=== PATIENT | male | born 1950 | race Caucasian/White ===

== ENCOUNTER → 2017-04-21 | Day surgery (SDC) | payer MEDICARE, MEDICAID ==
[~2017-04-21] MED LIST: Lactated Ringers 1,000 ML IV SCH; Propofol 200 MG/20 ML SDV IV ONE
--- NOTE | 2017-04-24 22:33 | OR ---
DATE OF OPERATION: 04/21/2017 PREOPERATIVE DIAGNOSIS: SCREENING COLONOSCOPY. POSTOPERATIVE DIAGNOSIS: SCREENING COLONOSCOPY. SURGEON: Chon Osborne MD PROCEDURE: FULL-LENGTH COLONOSCOPY. ANESTHESIA: [employer] due to mental retardation. COMPLICATIONS: None. SPECIMEN: None. FINDINGS: 1. Full-length colonoscopy. 2. Liriano-diverticulosis, moderate. RECOMMENDATIONS: Routine colonoscopy on a p.r.n. basis only at this point. INDICATIONS: The patient was seen for routine physical. He is a 4th [facility] resident, who is due for a 10-year follow up colonoscopy as a screening procedure. DESCRIPTION OF PROCEDURE: The patient was prepped and draped, placed in left lateral decubitus position. A lubricated Olympus colonoscope was inserted and safely and easily advanced to the cecum. Direct visualization of the ileocecal valve and appendiceal orifice was accomplished. Bowel prep was adequate. Upon withdrawal of the scope, the patient does have liriano diverticular disease extending from the right colon all the way through the rectosigmoid junction, more severe in the sigmoid area as expected, but moderate even all the way through the right colon. No acute inflammatory changes were seen throughout the length of the colon. I found no signs of any polyps, mass, ulceration, or bleeding sites. No vascular abnormalities or signs of colitis. The rectal vault was unremarkable. Retroflexion of scope in the rectum showed no anal lesions. Air was suctioned and scope removed without complication. MARVIN/KRISTOFER /[id number]
== END ==
LOC: CC.SDS 09:06
PROVIDERS: ATTEND Family Medicine
DX: Z12.11 Encounter for screening for malignant neoplasm of colon (principal); K57.30 Diverticulosis of large intestine without perforation or abscess without bleeding; N40.1 Benign prostatic hyperplasia with lower urinary tract symptoms; N39.43 Post-void dribbling; E78.00 Pure hypercholesterolemia, unspecified; I10 Essential (primary) hypertension; G20 Parkinson's disease; L50.8 Other urticaria; E11.9 Type 2 diabetes mellitus without complications; Z88.1 Allergy status to other antibiotic agents; Z79.899 Other long term (current) drug therapy; Z87.891 Personal history of nicotine dependence
CPT/HCPCS: 00812; 45378; G0121; J2704; J7120

== ENCOUNTER 2022-07-28 09:06 | Emergency (ER) | payer MEDICARE, MEDICAID ==
[2022-07-28] MEDS ORDERED: Lidocaine 1% with EPINEPHrine 1:100,000 20 ML MDV INJECT ONE (09:35)
[2022-07-28] MEDS ORDERED: LORazepam 2 MG/ML Syringe IM ONE (09:45)
== END 2022-07-28 10:40 | disposition home or self-care (01) ==
LOC: CC.ED 09:06
DX: S01.511A Laceration without foreign body of lip, initial encounter (principal); S00.83XA Contusion of other part of head, initial encounter; E78.00 Pure hypercholesterolemia, unspecified; I10 Essential (primary) hypertension; Z79.899 Other long term (current) drug therapy; Z88.1 Allergy status to other antibiotic agents; W18.30XA Fall on same level, unspecified, initial encounter
CPT/HCPCS: 12013; 96372; 99282; 99283; J2060; J3490